=== PATIENT | female | born 1990 | race Caucasian/White ===

== ENCOUNTER 2019-05-27 11:18 | Emergency (ER) | payer MEDICARE, MEDICAID ==
[~2019-05-27] VITALS: Ht 162.6 cm; Wt 136.0 kg
[2019-05-27 11:53] VITALS: BP 157/98
[2019-05-27] MEDS ORDERED: PRED20TA PO (12:27)
== END 2019-05-27 12:44 | disposition home or self-care (01) ==
LOC: ER 11:19
DX: J45.909 Unspecified asthma, uncomplicated (principal); R62.50 Unspecified lack of expected normal physiological development in childhood; Z88.2 Allergy status to sulfonamides; Z88.1 Allergy status to other antibiotic agents; Z88.8 Allergy status to other drugs, medicaments and biological substances; Z79.899 Other long term (current) drug therapy
CPT/HCPCS: 99283